=== PATIENT | female | born 1950 | race Caucasian/White ===

== ENCOUNTER → 2025-04-22 08:48 | Outpatient (CLI) | payer MEDICARE, SELFPAY ==
[2025-04-22 19:34] LABS: Alanine Aminotransferase 19 IU/L (<35); Albumin 4.2 g/dL (3.5-5.0); Albumin Globulin Ratio 1.6 (1.0-2.8); Alkaline Phosphatase 107 U/L (38-126); Blood Urea Nitrogen 17 mg/dL (7-17); Calcium 9.7 mg/dL (8.4-10.2); Carbon Dioxide 24 mmol/L (22-32); Chloride 107 mmol/L (98-107); Cholesterol 261 mg/dL (140-199); Estimated Glomerular Filt Rate > 60 mL/min (>60); Globulin 2.7 g/dL (1.7-4.1); Glucose 121 mg/dL (70-99); HDL Cholesterol 97 mg/dL (40-60); HEMOLYSIS 18 (0-50); Potassium 4.3 mmol/L (3.4-5.1); Sodium 139 mmol/L (137-145); Total Protein 6.9 g/dL (6.3-8.2); Triglycerides 110 mg/dL (35-150)
[2025-04-22 19:38] LABS: Hemoglobin A1C% w Est Avg Glu 5.6 % (4.0-6.0)
[2025-04-22 20:03] LABS: TSH w/ Reflex to FT4 0.67 uIU/mL (0.47-4.68)
[2025-04-22 20:46] LABS: Hematocrit 42.2 % (36-46); Hemoglobin 14.5 g/dL (12.0-16.0); Mean Corpuscular HGB Conc 34.4 % (30-36); Mean Corpuscular Hemoglobin 27.9 PG (26-34); Mean Corpuscular Volume 81.1 fL (80-100); Platelet Count 280 X10^3/uL (150-400)
[2025-04-22 20:50] LABS: Add Manual Diff / Slide Review YES
[2025-04-22 21:15] LABS: Atypical Lymphocytes Percent 2.0 %; Eosinophils Percent Manual 2.0 % (2-4); Lymphocytes Percent Manual 22.0 % (25-45); Monocytes Percent Manual 12.0 % (2-11); Neutrophils Absolute Manual 3162 /uL (3000-5900); RBC Morphology Normal Morphology; Segmented Neutrophils Percent 62.0 % (38-70); Total Cells Counted 100
== END ==
PROVIDERS: PCP Physician Assistant Medical; Visit Provider Physician Assistant Medical
DX: Z13.1 Encounter for screening for diabetes mellitus (principal); R53.83 Other fatigue; R07.89 Other chest pain; R03.0 Elevated blood-pressure reading, without diagnosis of hypertension; R94.31 Abnormal electrocardiogram [ECG] [EKG]; J18.9 Pneumonia, unspecified organism; R05.1 Acute cough; Z90.2 Acquired absence of lung [part of]
CPT/HCPCS: 80053; 80061; 82785; 83036; 84443; 85007; 85025; 86003